=== PATIENT | male | born 1980 | race Caucasian/White ===

== ENCOUNTER 2018-10-04 10:39 | Inpatient (IN) ==
--- NOTE | 2018-10-04 11:10 | Emergency Department Note ---
Disposition Clinical Impression: Chest pain Qualifiers: Chest pain type: chest pain due to myocardial ischemia Ischemic chest pain type: unstable angina pectoris Qualified Code(s): I20.0 - Unstable angina Disposition: Admitted As Inpatient Condition: Good Chest Pain HPI - General Chief Complaint: ED Chest Pain Stated Complaint: chest pain Time Seen by Provider: 10/04/18 10:45 Source: patient Mode of arrival: ambulatory Limitations: no limitations Vital Signs Reviewed: Yes Nursing Notes Reviewed: Yes - History of Present Illness HPI Narrative: Patient is a 37-year-old male presenting to [facility] ED for one half hour history of left-sided chest pain with radiation into his left jaw, back, and left arm. Patient states that he has a past medical history of myocardial infarction which happened one year ago last September. Patient states that he had 2 heart catheterizations and placement of an internal defibrillator/pacemaker. Patient also admits to past medical history of anxiety, depression, and GERD. Patient denies any other past medical history, no other surgeries. No known drug allergies. Patient states that he was driving with a friend approximately one half hour ago and experienced lightheadedness, dizziness, shortness of breath, and left sided chest pain. Patient states for the past week that he has had pain around his left scapula radiating down his left arm which she believes was related to a pulled muscle. Pt complaint: chest pain Onset (ago): minute(s) (Approximately one half hour ago) Duration: constant Pain Location: left chest Severity: severe Severity scale (1-10): 8 Quality: tightness, sharp, similar to prior AR Pain Radiation: LUE Improves with: medication-other Worsens with: nothing Associated symptoms: Reports: nausea, diaphoresis, dyspnea, sense of impending doom, palpitations. Denies: vomiting Treatments prior to arrival chest pain: none - Related Data Home Medications Medication Instructions Recorded Confirmed Aspirin [Lo-Dose Aspirin EC] 81 mg PO DAILY 10/04/18 10/04/18 Atorvastatin [Lipitor] 40 mg PO HS 10/04/18 10/04/18 Citalopram [CeleXA] 20 mg PO DAILY 10/04/18 10/04/18 Clopidogrel [Plavix] 75 mg PO DAILY 10/04/18 10/04/18 Furosemide [Lasix] 20 mg PO DAILY 10/04/18 10/04/18 Isosorbide MONOnitrate (24 HR) 30 mg PO DAILY 10/04/18 10/04/18 [Imdur] Metoprolol Succinate [Toprol Xl] 25 mg PO DAILY 10/04/18 10/04/18 Omeprazole [PriLOSEC] 20 mg PO DAILY 10/04/18 10/04/18 Sacubitril/Valsartan 24/26 mg 1 tab PO BID 10/04/18 10/04/18 [Entresto 24 mg-26 mg Tablet] Allergies Allergy/AdvReac Type Severity Reaction Status Date / Time No Known Allergies Allergy Verified 10/04/18 11:03 All systems ED: reviewed and negative except as stated. Review of Systems: As Per HPI Constitutional: Reports: weakness. Denies: fever, chills Cardiovascular: Reports: chest pain, palpitations, dyspnea on exertion Respiratory: Reports: dyspnea. Denies: wheezes Gastrointestinal: Reports: nausea. Denies: abdominal pain, vomiting Musculoskeletal: Reports: back pain, neck pain, myalgia Neurological: Reports: headache, weakness, numbness, paresthesias Psychiatric: Reports: anxiety, depression Endocrine: Reports: fatigue Chest Pain PMH - Past Medical History Medical history: Reports: myocardial infarction Psychiatric history: Reports: anxiety - Social History Smoking Status: Never smoker Alcohol use: Reports: none Drug use: Reports: marijuana Physical Exam - General Limitations: no limitations General appearance: alert, in no apparent distress - Head Head exam: atraumatic, normocephalic, normal inspection - Eye Eye exam: Present: normal appearance, PERRL, EOMI. Absent: scleral icterus - Neck Neck exam: Present: normal inspection, trachea midline - Chest Chest inspection: Present: normal inspection, symmetric chest wall rise - Respiratory Respiratory exam: Present: normal lung sounds bilaterally. Absent: respiratory distress, wheezes, stridor, accessory muscle use, prolonged expiratory phase - Cardiovascular Cardiovascular exam: Present: regular rate, normal rhythm, normal heart sounds, +S1, +S2. Absent: systolic murmur, diastolic murmur, JVD, +S3, +S4 - Abdominal Exam Abdominal exam: Present: soft, Non-Tender, normal bowel sounds. Absent: diste ntion, guarding, rebound, rigidity - Extremities Exam Extremities exam: Present: normal inspection, other (Posterior tibial and radial pulses are strong and regular bilaterally.). Absent: pedal edema - Neurological Exam Neurological exam: Present: alert, oriented X3 - Psychiatric Psychiatric exam: Present: normal affect, normal mood - Skin Skin exam: Present: warm, dry, intact, normal color. Absent: cyanosis, diaphoresis, erythema, pallor, mottled Course Course Narrative: Laboratories drawn - awaiting troponin result patient with IV and right antecubital fossa Chest x-ray 324 mg chewable aspirin administered. - Reevaluation(s) Reevaluation #1: Spoke with central sterile technician who recommended admission to hospitalist medicine service. Vital Signs Temperature 97.6 F 10/04/18 10:40 Pulse Rate 76 10/04/18 10:40 Respiratory Rate 24 10/04/18 10:40 Blood Pressure 151/81 10/04/18 10:40 O2 Sat by Pulse Oximetry 99 10/04/18 10:40 Temperature 98.1 F 10/04/18 15:18 Pulse Rate 60 10/04/18 15:18 Respiratory Rate 17 10/04/18 15:18 Blood Pressure 122/82 10/04/18 15:18 O2 Sat by Pulse Oximetry 94 10/04/18 15:18 Oxygen Delivery Oxygen Delivery Room Air Chest Pain - MDM Narrative Medical decision making narrative: Patient noted to hospitalist medicine service for further evaluation and management. Patient started on nitroglycerin drip for the management of symptoms. Patient verbalizes his understanding and agreement with this course of action. - Lab Data Lab results reviewed: Yes I reviewed the patient's lab results. Result diagrams: 10/04/18 11:15 10/04/18 11:15 Lab Results 10/04/18 10/04/18 10/04/18 Range/Units 11:15 11:15 11:15 WBC 8.4 (4.3-11.1) K/mcL RBC 5.16 (4.19-5.50) M/mcL Hgb 15.3 (12.9-16.9) g/dL Hct 45.2 (37.5-50.1) % MCV 87.6 (83.0-100.0) fL MCH 29.7 (28.0-33.3) pg MCHC 33.8 (31.6-35.5) g/dL RDW 13.6 (11.5-14.5) % Plt Count 178 (140-400) K/mcL MPV 11.8 (9.4-12.4) fL Immature Gran % 0.1 (0-4) % Seg Neutrophils % 48.4 % Lymphocytes % 33.0 % Monocytes % 11.9 % Eosinophils % 5.4 % Basophils % 1.2 % Neutrophils # 4.1 (1.6-8.9) K/mcL Lymphocytes # 2.8 (0.6-4.6) K/mcL Monocytes # 1.0 (0.0-1.3) K/mcL Eosinophils # 0.5 (0.0-0.6) K/mcL Basophils # 0.1 (0.0-0.2) K/mcL PT 11.2 (9.4-12.1) Seconds INR 1.0 APTT 32.0 (26.0-36.0) Seconds Sodium 139 (136-145) mEq/L Potassium 3.8 (3.5-5.1) mEq/L Chloride 102 (98-107) mEq/L Carbon Dioxide 24 (23-29) mEq/L BUN 17 (6-20) mg/dL Creatinine 1.16 (0.70-1.30) mg/dL Est GFR ( Amer) > 60 (> 60) Est GFR (Non-Af Amer) > 60 (> 60) BUN/Creatinine Ratio 15 (6-26) Glucose 124 H (70-105) mg/dL Calculated Osmolality 291 (280-300) Calcium 10.0 (8.6-10.3) mg/dL Creatine Kinase 121 (30-223) Units/L Troponin I < 0.03 (< 0.04) ng/mL B-Natriuretic Peptide (Less than 100) pg/mL 10/04/18 10/04/18 Range/Units 11:15 14:20 WBC (4.3-11.1) K/mcL RBC (4.19-5.50) M/mcL Hgb (12.9-16.9) g/dL Hct (37.5-50.1) % MCV (83.0-100.0) fL MCH (28.0-33.3) pg MCHC (31.6-35.5) g/dL RDW (11.5-14.5) % Plt Count (140-400) K/mcL MPV (9.4-12.4) fL Immature Gran % (0-4) % Seg Neutrophils % % Lymphocytes % % Monocytes % % Eosinophils % % Basophils % % Neutrophils # (1.6-8.9) K/mcL Lymphocytes # (0.6-4.6) K/mcL Monocytes # (0.0-1.3) K/mcL Eosinophils # (0.0-0.6) K/mcL Basophils # (0.0-0.2) K/mcL PT (9.4-12.1) Seconds INR APTT (26.0-36.0) Seconds Sodium (136-145) mEq/L Potassium (3.5-5.1) mEq/L Chloride (98-107) mEq/L Carbon Dioxide (23-29) mEq/L BUN (6-20) mg/dL Creatinine (0.70-1.30) mg/dL Est GFR ( Amer) (> 60) Est GFR (Non-Af Amer) (> 60) BUN/Creatinine Ratio (6-26) Glucose (70-105) mg/dL Calculated Osmolality (280-300) Calcium (8.6-10.3) mg/dL Creatine Kinase 3129 H (30-223) Units/L Troponin I < 0.03 (< 0.04) ng/mL B-Natriuretic Peptide 59 (Less than 100) pg/mL - Radiology Data Radiology results reviewed: Yes I reviewed the patient's radiology results. Chest X-Ray 10/04/18 10:46 IMPRESSION: Mild interstitial edema. D/ / 10/04/2018 11:11:39 Chhaya Woods MD / [facility] Interpreting Provider: Chhaya Woods MD - EKG Data EKG attestation: Yes I reviewed and interpreted this EKG. EKG results narrative: Patient EKG shows a sinus rhythm at a rate of 72 bpm, NH interval of 160 ms, QRS duration of 122 most seconds, QT/QTc interval of 368/393 ms there are significant ST segment elevations noted in leads V1 through V4 without reciprocal ST segment depressions. There are no pathologic Q waves or abnormal T-wave inversions noted at this time. Patient EKG was reviewed by cardiology along with myself cardiology recommends admission to hospitalist medicine service for further evaluation. Heart Score - Score History: Slightly Suspicious EKG: Non Specific repolarisation Disturbance Age: Less than 45 Risk Factors: Equal/Greater than 3 risk factor or history of atherosclerotic disease Troponin: Less than normal limit HEART Score Total: 3
[2018-10-04] MEDS ORDERED: Aspirin 81 MG TAB.CHEW PO SCH (11:15)
[2018-10-04 11:30] LABS: Basophils # 0.1 K/mcL (0.0-0.2); Basophils % 1.2 %; Eosinophils # 0.5 K/mcL (0.0-0.6); Eosinophils % 5.4 %; Hematocrit 45.2 % (37.5-50.1); Hemoglobin 15.3 g/dL (12.9-16.9); Immature Granulocytes % 0.1 % (0-4); Lymphocytes # 2.8 K/mcL (0.6-4.6); Mean Corpuscular HGB Conc 33.8 g/dL (31.6-35.5); Mean Corpuscular Hemoglobin 29.7 pg (28.0-33.3); Mean Corpuscular Volume 87.6 fL (83.0-100.0); Mean Platelet Volume 11.8 fL (9.4-12.4); Monocytes % 11.9 %; Neutrophils # 4.1 K/mcL (1.6-8.9); Platelet Count 178 K/mcL (140-400); Red Blood Count 5.16 M/mcL (4.19-5.50); Red Cell Distribution Width 13.6 % (11.5-14.5); Segmented Neutrophils % 48.4 %
[2018-10-04] MEDS ORDERED: Nitroglycerin 0.4 MG TAB.SUBL SL ONE (11:31)
[2018-10-04] MEDS: Nitroglycerin 0.4 MG TAB.SUBL SL PRN ×2 (11:32→12:11)
[2018-10-04 11:42] LABS: Prothrombin Time 11.2 Seconds (9.4-12.1)
[2018-10-04 11:54] LABS: BUN/Creatinine Ratio 15 (6-26); Blood Urea Nitrogen 17 mg/dL (6-20); Carbon Dioxide 24 mEq/L (23-29); Chloride 102 mEq/L (98-107); Glucose 124 mg/dL (70-105); Osmolality,Calculated 291 (280-300); Potassium 3.8 mEq/L (3.5-5.1); Sodium 139 mEq/L (136-145); Troponin I < 0.03 ng/mL (< 0.04); eGFR For Non-African Americans > 60 (> 60)
[2018-10-04] MEDS ORDERED: Ondansetron 4 MG/2 ML VIAL IVP ONE (12:22)
[2018-10-04] MEDS ORDERED: *HR* FentaNYL (PF) 100 MCG/2 ML VIAL IVP ONE (12:33)
[2018-10-04] MEDS ORDERED: *HR* FentaNYL (PF) 100 MCG/2 ML VIAL ONE (12:47)
--- NOTE | 2018-10-04 12:58 | Emergency Department Note ---
Disposition Clinical Impression: Chest pain Qualifiers: Chest pain type: unspecified Qualified Code(s): R07.9 - Chest pain, unspecified Disposition: Admitted As Inpatient Condition: Good Referrals: Tiara Boggs CNP [Primary Care Provider] - Forms: ED Satisfaction Letter General Adult HPI - General Chief complaint: ED Chest Pain Stated complaint: chest pain Time Seen by Provider: 10/04/18 10:45 Source: patient Mode of arrival: ambulatory Limitations: no limitations - History of Present Illness Pain Scale: 8 - Related Data Allergies Allergy/AdvReac Type Severity Reaction Status Date / Time No Known Allergies Allergy Verified 10/04/18 11:03 Constitutional: Reports: weakness. Denies: fever, chills Cardiovascular: Reports: chest pain, palpitations, dyspnea on exertion Respiratory: Reports: dyspnea. Denies: wheezes Gastrointestinal: Reports: nausea. Denies: abdominal pain, vomiting Musculoskeletal: Reports: back pain, neck pain, myalgia Neurological: Reports: headache, weakness, numbness, paresthesias Psychiatric: Reports: anxiety, depression Endocrine: Reports: fatigue Past Medical History - Past Medical History Medical history: Reports: myocardial infarction Psychiatric history: Reports: anxiety - Social History Smoking Status: Never smoker Alcohol use: Reports: none Drug use: Reports: marijuana Physical Exam - General Limitations: no limitations General appearance: alert, in no apparent distress Course - Consultations Consultation #1: discussed case with Dr. Wilson and he accepts patine to the medicine service Time: 13:12 Consultation #2: Dr. Garrison has consulted with Dr. Adrian and if they troponin is elevated than he may be a candidate for cardiac catherization at that time. They have asked me to monitor the second troponin level because of his ED HOLD status and to inform Dr. Garrison, Dr. Wilson, or Dr Adrian of results for emergent consideration for cardaic catherizaiton. [facility] charts are pending. Time: 14:09 Vital Signs Temperature 97.6 F 10/04/18 10:40 Pulse Rate 76 10/04/18 10:40 Respiratory Rate 24 10/04/18 10:40 Blood Pressure 151/81 10/04/18 10:40 O2 Sat by Pulse Oximetry 99 10/04/18 10:40 Temperature 97.6 F 10/04/18 10:40 Pulse Rate 70 10/04/18 13:15 Respiratory Rate 22 10/04/18 13:15 Blood Pressure 145/125 10/04/18 13:15 O2 Sat by Pulse Oximetry 96 10/04/18 13:15 Oxygen Delivery Oxygen Delivery Room Air Medical Decision Making - Lab Data Result diagrams: 10/04/18 11:15 10/04/18 11:15 Lab Results 10/04/18 10/04/18 10/04/18 Range/Units 11:15 11:15 11:15 WBC 8.4 (4.3-11.1) K/mcL RBC 5.16 (4.19-5.50) M/mcL Hgb 15.3 (12.9-16.9) g/dL Hct 45.2 (37.5-50.1) % MCV 87.6 (83.0-100.0) fL MCH 29.7 (28.0-33.3) pg MCHC 33.8 (31.6-35.5) g/dL RDW 13.6 (11.5-14.5) % Plt Count 178 (140-400) K/mcL MPV 11.8 (9.4-12.4) fL Immature Gran % 0.1 (0-4) % Seg Neutrophils % 48.4 % Lymphocytes % 33.0 % Monocytes % 11.9 % Eosinophils % 5.4 % Basophils % 1.2 % Neutrophils # 4.1 (1.6-8.9) K/mcL Lymphocytes # 2.8 (0.6-4.6) K/mcL Monocytes # 1.0 (0.0-1.3) K/mcL Eosinophils # 0.5 (0.0-0.6) K/mcL Basophils # 0.1 (0.0-0.2) K/mcL PT 11.2 (9.4-12.1) Seconds INR 1.0 APTT 32.0 (26.0-36.0) Seconds Sodium 139 (136-145) mEq/L Potassium 3.8 (3.5-5.1) mEq/L Chloride 102 (98-107) mEq/L Carbon Dioxide 24 (23-29) mEq/L BUN 17 (6-20) mg/dL Creatinine 1.16 (0.70-1.30) mg/dL Est GFR ( Amer) > 60 (> 60) Est GFR (Non-Af Amer) > 60 (> 60) BUN/Creatinine Ratio 15 (6-26) Glucose 124 H (70-105) mg/dL Calculated Osmolality 291 (280-300) Calcium 10.0 (8.6-10.3) mg/dL Troponin I < 0.03 (< 0.04) ng/mL B-Natriuretic Peptide (Less than 100) pg/mL 10/04/18 Range/Units 11:15 WBC (4.3-11.1) K/mcL RBC (4.19-5.50) M/mcL Hgb (12.9-16.9) g/dL Hct (37.5-50.1) % MCV (83.0-100.0) fL MCH (28.0-33.3) pg MCHC (31.6-35.5) g/dL RDW (11.5-14.5) % Plt Count (140-400) K/mcL MPV (9.4-12.4) fL Immature Gran % (0-4) % Seg Neutrophils % % Lymphocytes % % Monocytes % % Eosinophils % % Basophils % % Neutrophils # (1.6-8.9) K/mcL Lymphocytes # (0.6-4.6) K/mcL Monocytes # (0.0-1.3) K/mcL Eosinophils # (0.0-0.6) K/mcL Basophils # (0.0-0.2) K/mcL PT (9.4-12.1) Seconds INR APTT (26.0-36.0) Seconds Sodium (136-145) mEq/L Potassium (3.5-5.1) mEq/L Chloride (98-107) mEq/L Carbon Dioxide (23-29) mEq/L BUN (6-20) mg/dL Creatinine (0.70-1.30) mg/dL Est GFR ( Amer) (> 60) Est GFR (Non-Af Amer) (> 60) BUN/Creatinine Ratio (6-26) Glucose (70-105) mg/dL Calculated Osmolality (280-300) Calcium (8.6-10.3) mg/dL Troponin I (< 0.04) ng/mL B-Natriuretic Peptide 59 (Less than 100) pg/mL Attestation Statement - Attestation Attestation: I examined this patient and my medical decision-making was reviewed with the Resident Physician. I agree with the documented findings, disposition and treatment plan as described except to the extent set forth below. 37 year old male presents tot he ED with complaints of chest pressure that is simliar to his chest pressure to when he had ahis STEMI one year ago which required emergent slab grinder activation and now has two cardiac stents. he states that this has been going on for at least 24 hours and it is intermitment and otherwise relieved with nitro. discussed case with marline Oakley, and he at this time is not a candidate for emergent cardiac cath. WE will start nitro drip. negatie troponin, early repol in EKG and admit to mediicine
[2018-10-04] MEDS ORDERED: Nitroglycerin 25 MG/250 ML INFUS..BTL IVC SCH ×3 (13:00→15:00)
[2018-10-04] MEDS ORDERED: Furosemide 20 MG/2 ML VIAL IVP ONE (14:46)
[2018-10-04] MEDS ORDERED: *HR* Heparin 5,000 UNIT/ML VIAL IVP ONE ×2 (14:46→17:12)
[2018-10-04] MEDS ORDERED: *HR* Heparin 5,000 UNIT/ML VIAL IVP PRN ×4 (14:46→17:12)
--- NOTE | 2018-10-04 15:02 | Cardiology Consult Note ---
Date of Encounter: 10/04/18 Time of Encounter: 14:57 Assessment and Plan (1) Coronary artery disease Current Visit: Yes Status: Acute Status post-PCI to the LAD a year ago after massive myocardial infarction with the patient presented to the Prn Occupational Therapist after 11 hours of chest pain. We will repeat cardiac markers to evaluate for stent thrombosis, consider LHC if troponins rise Qualifiers: Coronary Disease-Associated Artery/Lesion type: knik artery [place] vs. transplanted heart: knik heart Associated angina: with unstable angina Qualified Code(s): I25.110 - Atherosclerotic heart disease of knik coronary artery with unstable angina pectoris (2) Chest pain Current Visit: Yes Status: Acute On and off chest pain currently denies any chest pain retrosternally rate continues to have left infrascapular chest discomfort which does change minimally with left upper extremity motion. Continue trend cardiac markers to evaluate for ischemic event. Start heparin IV ACS protocol and discontinue cardiac markers negative 4 Qualifiers: Chest pain type: chest pain due to myocardial ischemia Ischemic chest pain type: unstable angina pectoris Qualified Code(s): I20.0 - Unstable angina (3) Cardiomyopathy Current Visit: Yes Status: Acute Status post-ICD for ischemic cardio myopathy after massive anterior wall IL at outside hospital. Mildly hypervolemic at this time continue gentle diuresis and restart all meds that have been discontinued over the last 6 weeks. Qualifiers: Cardiomyopathy type: ischemic Qualified Code(s): I25.5 - Ischemic cardiomyopathy Discussion w patient/family: The assessment and plan as outlined above was discussed with the patient and/or family members who expressed understanding and agreement. All questions were answered. Thank you for involving us in the care of your patient. Please call with any questions. History of Present Illness Consult date: 10/04/18 Consult reason: SOB/CP Chief complaint: CP History of present illness: Mr. Vargas is a 37 year old male with history of multiple cardiac risk factors including obesity, hypertension, hyperlipidemia, coronary artery disease status post PCI to his LAD after a massive myocardial infarction at an outside hospital. Patient does admit to an LAD stent documentation not available for review. EKG does show evidence of myocardial infarction in the anterior leads possible visual wall motion abnormality ST elevations persisted from previous IL. Patient is known to have an ejection fraction 19% status post-ICD. He complains of increasing shortness of breath the last few weeks associated with chest tightness and onset of chest pain. Currently patient denies any anterior chest wall discomfort but has left infrascapular pain. His IL a year ago September 2017 was associated with significant retrosternal anterior chest pain. Patient did have an LHC a few days after his primary found to have patent stents and this was secondary to chest pain. He has recently been off his medications over the last few months as they were not refilled. This included Lasix, Plavix, and omeprazole. Patient according to guidelines would require dual antiplatelet therapy for at least one year due to his IL presentation. There is some concern of possible stent thrombosis which may have occurred after stopping his Plavix. Initial cardiac markers are negative and repeat enzymes still pending. Will obtain an echocardiogram to evaluate for new regional motion abnormalities despite this being difficult due to his ejection fraction 19% only. We will also obtain records from [facility] for review. Patient also is short of breath which has been progressive last few weeks likely secondary to a poor diet with significant salt and fluid intake with significant fast food salt rich meals. Patient also has not been taking his Lasix for the last few weeks as this has not been refilled along with his Plavix by his regular desktop support engineer. BNP is low however patient is obese there are some mild interstitial signs of edema on his chest x-ray. Have discussed findings with Dr. Garrison and have recommended gentle diuresis and restarting his medications. Due to history of acute renal failure with IVP dye will resist proceed with a LHC at this time until repeat labs are available. Risks benefits and alternatives were discussed patient and the patient does not agree with her plan of care. Past Med Surg Social Fam HX - Past Medical History Medical history: myocardial infarction Psychiatric history: anxiety - Social History Smoking Status: Never smoker Alcohol use: none Drug use: marijuana Medications and Allergies Allergy/AdvReac Type Severity Reaction Status Date / Time No Known Allergies Allergy Verified 10/04/18 11:03 All Systems Review: The remainder of the systems were reviewed and are negative Physical Examination Vital Signs, Last 4 Hours Pulse Resp BP Pulse Ox 10/04/18 14:32 85 16 134/57 97 10/04/18 13:15 70 22 145/125 96 10/04/18 12:48 68 140/89 99 10/04/18 11:27 81 16 146/86 98 General: Conversant, No Apparent Distress HEENT: Atraumatic, Normocephaly, Mucus Membranes Moist Neck: No JVD, Normal carotid pulses Cardiac: Reg Rate and Rhythm, Normal S1 and S2, No Murmur Lungs: Normal Breath Sounds, No Wheeze, Rales, Rhonchi, Other (Diminished air entry bibasilar) Neuro: Alert and responsive, No focal deficits noted Abdomen: Soft, Non-Tender Skin: No rashes noted on visualized skin Musculoskeletal: No Chest Wall Tenderness Extremities: No Clubbing, No Cyanosis, No Edema, Normal Pulses Results 10/04/18 11:15 10/04/18 11:15 Lab Results 10/04/18 10/04/18 10/04/18 11:15 11:15 11:15 WBC 8.4 Hgb 15.3 Hct 45.2 Plt Count 178 INR 1.0 APTT 32.0 Sodium 139 Potassium 3.8 Chloride 102 Carbon Dioxide 24 BUN 17 Creatinine 1.16 Glucose 124 H Calcium 10.0 Troponin I < 0.03 B-Natriuretic Peptide 10/04/18 11:15 WBC Hgb Hct Plt Count INR APTT Sodium Potassium Chloride Carbon Dioxide BUN Creatinine Glucose Calcium Troponin I B-Natriuretic Peptide 59 Consult Discharge Plan - Plan Referrals: Tiara Boggs, SCRIPT ARTIST [Primary Care Provider] -
[2018-10-04 15:09] LABS: Creatine Kinase 3129 Units/L (30-223); Troponin I < 0.03 ng/mL (< 0.04)
[2018-10-04] MEDS ORDERED: OXYCODONE Oral CONC 10 MG/0.5 ML ORAL.SYG SL PRN (15:10)
--- NOTE | 2018-10-04 15:29 | Internal Med History&Physical ---
Date of Encounter: 10/04/18 Time of Encounter: 15:20 Internal Medicine - H&P: HPI Chief complaint: Chest pain Admitted From: Emergency Dept History of present illness: Mr. Vargas is a 37 year old male with a past medical history of hyperlipidemia, hypertension, coronary artery disease with a massive ND one year ago at [facility] with 2 stents placed to his LAD as per family who is very eloquent, who presents to the ER with substernal chest pain which started while he was driving with a friend. The patient states that he has been having shoulder pain and muscular pain in the left shoulder for quite some days but then today he started having chest pain located substernally which was felt like a squeezing sensation. On further questioning the patient states that he has been expressing these kind of squeezing sensations off and on especially with activity for the last 2 weeks and they have been increasing in severity. Surfak there are 2 different doctors for the pain that he is giving me at this point. The squeezing chest pain is as described as 8/10 in severity and comes and goes after a few seconds but it was at its worst earlier this morning when he was driving with his friend. The patient states that the pain in the back of his arm is more or less consistent but also bad for the last month or so and he activated that pain due to muscular skeletal pain. In the ER he underwent an EKG which showed ST elevation in lead V1 to 3 and 4 on repeat studies but his first set of troponin was negative. He had decent blood pressure in the 130s systolic and he took 3 nitroglycerin after which the pain briefly subsided but came back. He was then placed on a nitroglycerin drip with improvement in his pain but the substernal chest pain continued to occur in episodes. He has already had 2 episodes of this substernal pain during my evaluation at his bedside while he is already placed on nitroglycerin drip. He also complained of nausea but does not remember if he truly had diaphoresis. He does admit that this substernal chest pain is just like his first heart attack pain that he had one year ago. The patient also tells me that he was placed on aspirin and Plavix after his cardiac catheter last year at [facility] but he ran out of a lot of his medications about 3 months ago and has not been taking them consistently. This also includes Plavix, Lasix. He mentions that his last ejection fraction was about 20% but does not know the details of the exact time of the last echo. He did state that an ICD was placed when there was no significant improvement of his ejection fraction seen after several months of having the last ND. I have evaluated this patient in the presence of end user consultant regional administrative assistant at the bedside Past Med Surg Social Fam HX - Past Medical History Medical history: myocardial infarction Psychiatric history: anxiety - Social History Smoking Status: Never smoker Alcohol use: none Drug use: marijuana - Additional Family History Additional family history: No other significant family history of early cardiac disease Internal Medicine - H&P: Meds Aspirin [Lo-Dose Aspirin EC] 81 mg PO DAILY 10/04/18 [History] Atorvastatin [Lipitor] 40 mg PO HS 10/04/18 [History] Citalopram [CeleXA] 20 mg PO DAILY 10/04/18 [History] Clopidogrel [Plavix] 75 mg PO DAILY 10/04/18 [History] Furosemide [Lasix] 20 mg PO DAILY 10/04/18 [History] Isosorbide MONOnitrate (24 HR) [Imdur] 30 mg PO DAILY 10/04/18 [History] Metoprolol Succinate [Toprol Xl] 25 mg PO DAILY 10/04/18 [History] Omeprazole [PriLOSEC] 20 mg PO DAILY 10/04/18 [History] Sacubitril/Valsartan 24/26 mg [Entresto 24 mg-26 mg Tablet] 1 tab PO BID 10/04/18 [History] Allergy/AdvReac Type Severity Reaction Status Date / Time No Known Allergies Allergy Verified 10/04/18 11:03 All Systems PM: A 10-system review of systems was performed and is negative for pertinent findings except as documented above in the HPI. - Constitutional Vitals: Temp Pulse Resp BP Pulse Ox 97.6 F 85 16 134/57 97 10/04/18 10:40 10/04/18 14:32 10/04/18 14:32 10/04/18 14:32 10/04/18 14:32 Exam: GENERAL: Alert, moderate distress, intermittently acknowledges pain in the chest region cooperative EYES: PERRLA, EOMI EARS: External ears normal, canals clear OROPHARYNX: Lips, mucosa, and tongue normal. Teeth and gums normal. Oropharynx n ormal. NECK: No jugulovenous distention, No carotid bruits, Carotid pulse normal contour, Supple LUNGS: Scattered crackles on both bases CARDIAC: Normal S1 and S2; no rubs, murmurs, or gallops ABDOMEN: Abdomen soft, non-tender, BS normal, No masses or organomegaly EXTREMITIES: Extremities 1+ pitting edema bilaterally, clubbing or skin discoloration. Good capillary refill., No ulcers NEURO: Gait not tested Reflexes normal and symmetric. Sensation grossly intact, Cranial nerves II-XII intact PULSES: 2+ radial, 2+ carotid Rest of the exam is non contributory Internal Med - H&P Results - Labs CBC & Chem 7: 10/04/18 11:15 10/04/18 11:15 Labs: Short CBC 10/04/18 Range/Units 11:15 WBC 8.4 (4.3-11.1) K/mcL Hgb 15.3 (12.9-16.9) g/dL Hct 45.2 (37.5-50.1) % Plt Count 178 (140-400) K/mcL Neutrophils # 4.1 (1.6-8.9) K/mcL BMP 10/04/18 11:15 Sodium 139 Potassium 3.8 Chloride 102 Carbon Dioxide 24 BUN 17 Creatinine 1.16 Glucose 124 H Calcium 10.0 Cardiac Enzymes 10/04/18 10/04/18 Range/Units 11:15 14:20 Troponin I < 0.03 < 0.03 (< 0.04) ng/mL - EKG Data -: EKG Interpreted by Myself (Discussed with cardiology at bedside) - EKG Data Prior EKG available for review: no When compared to previous EKG: there are significant changes Interpretation IM: suggestive of ischemia (ST elevation on anterolateral leads) - Impressions ITS Impressions Chest X-Ray 10/04/18 10:46 IMPRESSION: Mild interstitial edema. D/ / 10/04/2018 11:11:39 Chhaya Woods MD / [facility] Interpreting Provider: Chhaya Woods MD - Assessment and Plan (1) Angina pectoris, unstable Current Visit: Yes Status: Acute Assessment and plan: Patient is presenting with unstable angina. He has a significant past medical history of massive ND one year ago. The emergency department he has has reached out to us so I am see for medical records which are not yet back. His initial EKG here is concerning for ST abnormality especially in the anterior lateral leads. He does have a poor ejection fraction at least based off his history. I have evaluated this patient and discussed the case explicitly and in detail with cardiology at the bedside. As per cardiology, his EKG changes could be related to his prior ND especially if he has a very poor ejection fraction and severe impairment of his cardiac wall due to the last ND. We initially repeated a second set of troponin 3 hours from the last result and it was not elevated. However the patient continues to have intermittent chest pain despite being on nitroglycerin glycerin drip. A CK level was also checked and is very high at 3000. At the request of cardiology, I have requested the lab to add on a CK level to 11 AM troponin level. If his CK level is elevated that this patient will need to go to cardiac catheterization I will also placed another stat troponin right now, and if this troponin is elevated he will again need to go to cardiac catheterization I will make sure that the cardiology is made aware of the results in a timely fashion We will place the patient on step down unit and start him on low-dose ACS protocol heparin, continue statins and continue beta nina, entresto, also give him 1 dose of IV Lasix to diurese, in addition to nitro drip. He also got aspirin 325 this morning We will continue to carefully monitor this patient on step down unit (2) Hypertension, essential Current Visit: Yes Status: Acute Assessment and plan: Blood pressure is stable for now. Continue to monitor carefully for hypoperfusion in case it develops. (3) Ischemic cardiomyopathy Current Visit: Yes Status: Acute Assessment and plan: Significant prior history and medical results are awaited from [facility]. Still consider him to be a candidate for cardiac catheterization depending on the blood test results as mentioned before. I have discussed the report of latest CPK levels but cardiology wants me to trend CK levels before deciding on cardiac catheterization . - Time Spent With Patient Total time spent is greater than 50% in coordination of care (as documented) at patient's floor/unit and/or counseling patient:120 min including [id number] conversation and counseling with the patient and the family and discussing the case with cardiology - VTE Reasons for not Prescribing Prophylaxis: Not indicated-Anticoagulated or INR therapeutic
[2018-10-04 15:32] LABS: Creatine Kinase 121 Units/L (30-223)
[2018-10-04] MEDS ORDERED: Heparin 25,000 UNIT/250 ML D5W 25,000 UNIT/250 ML IV.SOLN IVC SCH (17:15)
[2018-10-04] MEDS ORDERED: Perflutren Lipid Microsphere 1.3 ML in 0.9 % Sodium Chloride 8.7 ML IVP ONE (18:06)
[2018-10-04] MEDS: SACUBITRIL/VALSARTAN 24/26 MG TABLET PO SCH (21:28)
[2018-10-05 00:25] LABS: Basophils # 0.1 K/mcL (0.0-0.2); Basophils % 0.7 %; Eosinophils # 0.3 K/mcL (0.0-0.6); Eosinophils % 3.2 %; Hemoglobin 14.8 g/dL (12.9-16.9); Immature Granulocytes % 0.3 % (0-4); Lymphocytes % 28.6 %; Mean Corpuscular HGB Conc 33.6 g/dL (31.6-35.5); Mean Corpuscular Volume 89.2 fL (83.0-100.0); Monocytes # 0.9 K/mcL (0.0-1.3); Monocytes % 8.4 %; Neutrophils # 6.1 K/mcL (1.6-8.9); Platelet Count 183 K/mcL (140-400); Red Blood Count 4.93 M/mcL (4.19-5.50); Red Cell Distribution Width 13.7 % (11.5-14.5); Segmented Neutrophils % 58.8 %
[2018-10-05 00:40] LABS: BUN/Creatinine Ratio 14 (6-26); Blood Urea Nitrogen 17 mg/dL (6-20); Calcium 9.1 mg/dL (8.6-10.3); Carbon Dioxide 27 mEq/L (23-29); Chloride 103 mEq/L (98-107); Glucose 109 mg/dL (70-105); Osmolality,Calculated 288 (280-300); Sodium 138 mEq/L (136-145); eGFR For Non-African Americans > 60 (> 60)
[2018-10-05 03:57] LABS: Estimated Average Glucose 131 mg/dl; Hemoglobin A1C 6.2 %
[2018-10-05] MEDS: SACUBITRIL/VALSARTAN 24/26 MG TABLET PO SCH (08:26)
[2018-10-05] MEDS ORDERED: Aspirin 81 MG TAB.CHEW PO SCH (09:00)
[2018-10-05] MEDS ORDERED: Isosorbide MONOnitrate (24 HR) 30 MG TAB.ER.24H PO SCH (09:00)
[2018-10-05 10:20] VITALS: BP 127/79
--- NOTE | 2018-10-05 11:44 | Discharge Summary ---
<Christine Jones - Last Filed: 10/05/18 15:05> - NOTES TO OUTPATIENT PROVIDER Notes to Outpatient Provider: Patient presented with chest pain. Patient had not had his Plavix, atorvastatin, metoprolol for 3 months. Was found to be non- ischemic based on cardiac markers. EKG showed evidence of myocardial infarction in anterior leads and abnormality of ST elevation that have persisted from previous NM. He was continued on his home medications and is Imdur was increased. He is to follow up with his wafer machine operator. TTE: Ejection fraction improved to 30-35% from the previous 19%. Orders not resulted at time of discharge: Pending orders 10/04/18 14:46 ECG 12 lead ECG [ECG] Routine ECG 12 lead ECG [ECG] Stat 10/05/18 07:00 ECG 12 lead ECG [ECG] Routine Date of Encounter: 10/05/18 Time of Encounter: 11:39 - Discharge Diagnosis (1) Angina pectoris, unstable Priority: Primary Status: Acute (2) Ischemic cardiomyopathy Priority: Secondary Status: Acute (3) Hypertension, essential Priority: Secondary Status: Acute Hospital course: Mr. Vargas is a 37 year old male with past medical history of massive NM 1 year ago at [facility] with 2 stents placed to his LAD who presented to [facility] complaining of chest pain that was sub sternal. He was sitting in the car at rest when this started. The pain radiated down his left shoulder and his back and was similar to his NM last year. The past 2 weeks he had been experiencing some exertional chest pain. He described the pain was a squeezing sensation. The patient reported his last ejection fraction was 19%. He stated that for the past 3 months he had been out of his Plavix, atorvastatin, metoprolol. Initial troponin's negative. EKG showed evidence of myocardial infarction in anterior leads and abnormality of ST elevation that have persisted from previous NM. The patient was given nitroglycerin which seemed to help the pain temporarily so he was placed on a nitroglycerin drip. He was started on a heparin drip and given aspirin. Cardiology was consulted. After repeat cardiac markers that were negative it was determined to his chest pain was nonischemic. Of note, creatinine kinase was 3129 then repeat 118. TTE: Ejection fraction improved to 30-35% from the previous 19%. He was continued on his home medications and is Imdur was increased. He was to follow up with his wafer machine operator. Upon discharge she denied fever, chills, chest pain, shortness of breath, diaphoresis, nausea. His 's at the bedside. He stated clear understanding of the treatment plan and was agreeable. Discharge discussed with: patient, family, nurse - Time Spent with Patient Total time spent providing and/or coordinating discharge services: Time spent: Greater than 30 minutes - Discharge Medications Prescriptions: New Isosorbide MONOnitrate (24 HR) [Imdur] 60 mg PO DAILY #30 tab.er.24h Continue RX: Omeprazole [PriLOSEC] 20 mg PO DAILY RX: Furosemide [Lasix] 20 mg PO DAILY RX: Citalopram [CeleXA] 20 mg PO DAILY RX: Aspirin [Lo-Dose Aspirin EC] 81 mg PO DAILY #30 tablet. RX: Atorvastatin [Lipitor] 40 mg PO HS #30 tablet RX: Clopidogrel [Plavix] 75 mg PO DAILY #30 tablet RX: Metoprolol Succinate [Toprol Xl] 25 mg PO DAILY #30 tab.er.24h RX: Sacubitril/Valsartan 24/26 mg [Entresto 24 mg-26 mg Tablet] 1 tab PO BID #60 tablet Discontinued Isosorbide MONOnitrate (24 HR) [Imdur] 30 mg PO DAILY Home Medications: RX: Citalopram [CeleXA] 20 mg PO DAILY 10/04/18 [History] RX: Furosemide [Lasix] 20 mg PO DAILY 10/04/18 [History] RX: Omeprazole [PriLOSEC] 20 mg PO DAILY 10/04/18 [History] Isosorbide MONOnitrate (24 HR) [Imdur] 60 mg PO DAILY #30 tab.er.24h 10/05/18 [Rx] RX: Aspirin [Lo-Dose Aspirin EC] 81 mg PO DAILY #30 tablet. 10/05/18 [Rx] RX: Atorvastatin [Lipitor] 40 mg PO HS #30 tablet 10/05/18 [Rx] RX: Clopidogrel [Plavix] 75 mg PO DAILY #30 tablet 10/05/18 [Rx] RX: Metoprolol Succinate [Toprol Xl] 25 mg PO DAILY #30 tab.er.24h 10/05/18 [Rx] RX: Sacubitril/Valsartan 24/26 mg [Entresto 24 mg-26 mg Tablet] 1 tab PO BID #60 tablet 10/05/18 [Rx] Allergies/Adverse Reactions: Allergy/AdvReac Type Severity Reaction Status Date / Time No Known Allergies Allergy Verified 10/04/18 11:03 Date of admission: 10/04/18 16:31 Primary care physician: Tiara Boggs CNP Consults: 10/04/18 14:46 Consult to Cardiac Rehabilitation-Phase1 [CONS] Routine Comment: Reason for Consult: AMI Call Completed: Yes Consult to Cardiology [CONS] Stat Comment: Consulting Provider: Cardiology Ruthie Reason for Consult: Chest pain Time Notified: 14:51 Call Completed: Yes Consult to Nurse Navigator [CONS] Routine Comment: Discharging clinician: Miguel A Parisi Anticipated date of discharge: 10/05/18 - Constitutional Vitals: Temp Pulse Resp BP Pulse Ox 98.0 F 52 14 127/79 95 10/05/18 11:07 10/05/18 10:00 10/05/18 10:00 10/05/18 10:00 10/05/18 10:00 Exam: Gen.: Vitals noted. No acute distress. AAOx3 HEENT: oropharynx clear, Normocephalic, atraumatic Neck: Supple. No adenopathy. Cardiac: RRR, no murmur, +S1/S2 Pulmonary: CTA bilaterally, no wheezes, rales or rhonchi, equal chest expansion Abdomen: soft, nontender, Bowel sounds noted, no guarding MSK: ROM intact, no joint swelling noted Extremities: no BLE edema, nontender calf, no cyanosis or clubbing, right upper extremity slightly tender Neuro: A&Ox3, moves all extremities, no focal deficits Psych: Appropriate mood and behavior - Patient Status Disposition: Home, Self-Care Condition: Good Functional capacity at discharge: independent ambulation Overall status at discharge: patient is back to baseline - Discharge Instructions Follow Up With: Tiara Boggs CNP [Primary Care Provider] - Additional Instructions: - Continue to take home medications such as atorvastatin, aspirin, Plavix, entresto, metoprolol. Continue to take the increased dose of Imdur. -Follow-up with her wafer machine operator in about a week -Return to the hospital should you develop chest pain, diaphoresis, shortness of breath. - Diet and Activity Activity: resume usual activities as tolerated Diet: advance to your usual diet - VTE Reasons for not Prescribing Prophylaxis: Not indicated-Anticoagulated or INR therapeutic <Miguel A Parisi - Last Filed: 10/05/18 16:30> Orders not resulted at time of discharge: Pending orders 10/04/18 14:46 ECG 12 lead ECG [ECG] Routine ECG 12 lead ECG [ECG] Stat 10/05/18 07:00 ECG 12 lead ECG [ECG] Routine Date of Encounter: 10/05/18 - Discharge Diagnosis (1) Ischemic cardiomyopathy Status: Acute (2) Angina pectoris, unstable Status: Acute (3) Hypertension, essential Status: Acute (4) Coronary artery disease Priority: Secondary Status: Acute Qualifiers: Coronary Disease-Associated Artery/Lesion type: [place] artery [place] vs. transplanted heart: [place] heart Associated angina: with unstable angina Qualified Code(s): I25.110 - Atherosclerotic heart disease of [place] coronary artery with unstable angina pectoris (5) Morbid obesity with BMI of 40.0-44.9, adult Priority: Secondary Status: Chronic Hospital course: Mr. Vargas is a 37 year old male - Time Spent with Patient Total time spent providing and/or coordinating discharge services: 35min Date of admission: 10/04/18 16:31 Primary care physician: Tiara Boggs CNP Consults: 10/04/18 14:46 Consult to Cardiac Rehabilitation-Phase1 [CONS] Routine Comment: Reason for Consult: AMI Call Completed: Yes Consult to Cardiology [CONS] Stat Comment: Consulting Provider: Cardiology Ruthie Reason for Consult: Chest pain Time Notified: 14:51 Call Completed: Yes Consult to Nurse Navigator [CONS] Routine Comment: - Constitutional Vitals: Temp Pulse Resp BP Pulse Ox 98.0 F 52 14 127/79 95 10/05/18 11:07 10/05/18 10:00 10/05/18 10:00 10/05/18 10:00 10/05/18 10:00 - Attending Attestation I examined this patient and my medical decision-making was reviewed with the Resident Physician on 10/05/18. I agree with the documented findings, disposition and treatment plan as described except to the extent set forth below. Mr Vargas has been admitted for chest pain. There was concern for ACS but troponins were negative. With further discussion it was found that he was out of meds for 3 months. At this time he is asymptomatic and felt stable for discharge home. EF 30-35% but improved per patient. Exam alert Comfortable Mucus membranes dry Heart reg No wheeze Plan D/C home today. Imdur increased per cardiology recommendation.
--- NOTE | 2018-10-06 10:14 | Electrocardiograph Report ---
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
--- NOTE | 2018-10-07 08:40 | Electrocardiograph Report ---
[address] [place], [place] [address] Test Date: 2018-10-04 Pat Name: Gregg Vargas Department: 104 Room: [facility] Gender: M Baker Pie: : 1980 Requested By: Eliz Garrison Order Number: [id number] Reading MD: Toni Cole Measurements Intervals [place] Rate: 72 P: 50 ID: [id number] QRS: 105 QRSD: 122 T: 55 QT: 368 QTc: 393 Interpretive Statements SINUS RHYTHM ANTERIOR MYOCARDIAL INFARCTION, OF INDETERMINATE AGE Electronically Signed On 10-07-2018 8:39:07 EDT by Toni Cole
--- NOTE | 2018-10-07 08:42 | Electrocardiograph Report ---
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
== END 2018-10-05 13:36 | disposition home or self-care (01) | DRG 198 ==
LOC: EMEROOARM 10:39 → 3BNU 10:39 → ICNU 16:29 → SUATTDRO 16:31
PROVIDERS: ADMIT Hospitalist; ATTEND Internal Medicine